=== PATIENT | male | born 2000 | race Caucasian/White ===

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

== ENCOUNTER 2019-08-02 23:09 | Emergency (ER) | payer BC ==
[~2019-08-02] VITALS: Ht 185.4 cm; Wt 77.3 kg
[2019-08-02 23:19] VITALS: TEMP 97.6
[2019-08-03] MEDS ORDERED: NORCO 325 MG-51 TAB PO (00:26)
[2019-08-03 01:50] VITALS: BP 112/71; PULSE 86
== END 2019-08-03 01:52 | disposition home or self-care (01) ==
LOC: COL.ER 23:09
DX: S52.302A Unspecified fracture of shaft of left radius, initial encounter for closed fracture (principal); S52.202A Unspecified fracture of shaft of left ulna, initial encounter for closed fracture; W19.XXXA Unspecified fall, initial encounter; Y92.838 Other recreation area as the place of occurrence of the external cause; Y93.67 Activity, basketball
CPT/HCPCS: J3010; Q4050